=== PATIENT | male | born 1975 | race Caucasian/White ===

== ENCOUNTER 2016-04-06 23:05 | Emergency (ER) | payer SELFPAY ==
[~2016-04-06] VITALS: Ht 175.3 cm; Wt 86.4 kg
[~2016-04-06 23:05] MED LIST: ATARAX; CELEXA20 MG PO; COLACE 100100 MG/CAP PO; DESYREL 50MG50 MG PO; LISINOPRIL10 MG PO; NAPROSYN500 MG PO; NORCO 325 MG-51 TAB PO; PERCOCET 325 MG1 TA2 PO; PRINZIDE 12.5 M1 TA1 PO; SENOKOT S 50 MG1 TAB PO; TRAZADONE HYDR100 MG PO; XANAX 1MG1 MG PO; XANAX0.5 MG PO; ZOFRAN 4MG T4 MG/TAB PO; ZOLOFT 100MG100 MG PO
[2016-04-06 23:07] VITALS: TEMP 98.1
[2016-04-07] LABS: BASO # 0.1 (0.0-0.2); BASO % 0.7 % (0.0-2.0); EOS # 0.1 (0.0-0.7); EOS % 1.3 % (0-4.0); GRAN # 7.3 (1.4-6.5); GRAN % 66.7 % (42.2-75.2); HEMATOCRIT 42.5 % (42.0-52.0); HEMOGLOBIN 14.7 g/dl (13.5-18.0); LYMPH # 2.3 (1.2-3.4); MEAN CELL VOLUME 95 fl (80.0-100.0); MEAN CORPUSCULAR HEMOGLOBIN 33 pg (27.0-31.0); MEAN CORPUSCULAR HGB CONC 35 g/dl (33.0-37.0); MEAN PLATELET VOLUME 9.4 fl (7.4-10.4); MONO # 0.9 (0.1-0.6); MONO % 8.6 % (1.7-9.3); PLATELET COUNT 191 K/mm3 (130-400); RED BLOOD COUNT 4.48 M/mm3 (4.20-5.60); REDCELL DISTRIBUTION WIDTH-CV 13.1 % (11.5-14.5); WHITE BLOOD COUNT 10.9 K/mm3 (4.8-10.8)
[2016-04-07 00:10] LABS: PH 7 (5-8); URINE APPEARANCE Clear; URINE BILIRUBIN Negative (NEGATIVE); URINE BLOOD Negative (NEGATIVE); URINE COLOR Straw; URINE GLUCOSE Negative (NEGATIVE); URINE KETONE Negative (NEGATIVE); URINE UROBILINOGEN Negative (NEGATIVE)
[2016-04-07 00:13] LABS: ADJUSTED CALCIUM 8.9 mg/dL (8.4-10.2); ALANINE AMINOTRANSFERASE 64 U/L (21-72); ALBUMIN 3.9 gm/dL (3.5-5.0); ALKALINE PHOSPHATASE 77 U/L (50-136); ANION GAP 16 mmol/L (7-16); BILIRUBIN,TOTAL 0.8 mg/dL (0.0-1.0); BLOOD UREA NITROGEN 2 mg/dL (9-20); C-REACTIVE PROTEIN 1.2 mg/dL (0.0-0.9); CALCIUM 8.8 mg/dL (8.4-10.2); CARBON DIOXIDE 26 mmol/L (22-30); CHLORIDE 93 mmol/L (98-107); CREATININE, serum 0.63 mg/dL (0.66-1.25); GLUCOSE 106 mg/dL (74-106); POTASSIUM 3.3 mmol/L (3.4-5.0); SODIUM 135 mmol/L (137-145); TOTAL PROTEIN 7.5 gm/dL (6.4-8.2)
[2016-04-07 00:22] LABS: B-TYPE NATRIURETIC PEPTIDE 98 pg/mL (0-125); TROPONIN-I < 0.012 ng/mL (0.000-0.034)
[2016-04-07 00:25] LABS: ERYTHROCYTE SEDIMENTATION RATE 9 mm/hr (0-15)
[2016-04-07 00:50] VITALS: BP 96/68
[2016-04-07] MEDS ORDERED: ULTRAM 50MG TAB50 MG PO (00:54)
[2016-04-07 01:10] VITALS: PULSE 78
[2016-04-07 02:37] LABS: SQUAMOUS EPITHELIAL None Seen /hpf; URINE BACTERIA None Seen /hpf; URINE RBC None Seen /hpf; URINE WBC None Seen /hpf
== END 2016-04-07 01:12 | disposition home or self-care (01) ==
LOC: COL.ER 23:05
PROVIDERS: Emergency Medicine
DX: R60.0 Localized edema (principal); F10.120 Alcohol abuse with intoxication, uncomplicated; Y90.7 Blood alcohol level of 200-239 mg/100 ml; I10 Essential (primary) hypertension; F17.220 Nicotine dependence, chewing tobacco, uncomplicated
CPT/HCPCS: J1885

== ENCOUNTER 2017-06-08 18:24 | Emergency (ER) | payer SELFPAY ==
[~2017-06-08] VITALS: Ht 182.9 cm; Wt 90.9 kg
[~2017-06-08 18:24] MED LIST changes: +ULTRAM 50MG TAB50 MG PO
[2017-06-08 18:26] VITALS: BP 140/87; PULSE 108; TEMP 98.4
[2017-06-08 18:41] LABS: BASO # 0.1 (0.0-0.2); BASO % 0.5 % (0.0-2.0); EOS # 0.1 (0.0-0.7); EOS % 0.4 % (0-4.0); GRAN # 12.7 (1.4-6.5); GRAN % 79.8 % (42.2-75.2); HEMATOCRIT 43.6 % (42.0-52.0); HEMOGLOBIN 15.8 g/dl (13.5-18.0); LYMPH % 12.4 % (20.0-51.0); MEAN CELL VOLUME 93 fl (80.0-100.0); MEAN CORPUSCULAR HEMOGLOBIN 34 pg (27.0-31.0); MEAN CORPUSCULAR HGB CONC 36 g/dl (33.0-37.0); MEAN PLATELET VOLUME 9.3 fl (7.4-10.4); MONO # 0.8 (0.1-0.6); MONO % 5.3 % (1.7-9.3); PLATELET COUNT 164 K/mm3 (130-400)
[2017-06-08 18:43] LABS: COLLECTION METHOD CLEAN CATCH
[2017-06-08 18:49] LABS: PH 5 (5-8); SQUAMOUS EPITHELIAL None Seen /hpf; URINE APPEARANCE Clear; URINE BACTERIA None Seen /hpf; URINE BILIRUBIN Negative (NEGATIVE); URINE BLOOD Negative (NEGATIVE); URINE COLOR Straw; URINE GLUCOSE Negative (NEGATIVE); URINE KETONE Negative (NEGATIVE); URINE LEUKOCYTE ESTERASE Negative (NEGATIVE); URINE NITRATE Negative (NEGATIVE); URINE PROTEIN(semi-quant) Negative (NEGATIVE); URINE RBC None Seen /hpf; URINE UROBILINOGEN Negative (NEGATIVE)
[2017-06-08 18:58] LABS: TRICYCLIC ANTIDEPRESS URINE NEGATIVE
[2017-06-08 18:59] LABS: ACETAMINOPHEN < 10 ug/mL (10-30); ALANINE AMINOTRANSFERASE 97 U/L (21-72); ALBUMIN 4.1 gm/dL (3.5-5.0); ALCOHOL(ethanol),MEDICAL 261 mg/dL; ALKALINE PHOSPHATASE 61 U/L (50-136); ANION GAP 20 mmol/L (7-16); AST,SGOT 53 U/L (15-37); BILIRUBIN,TOTAL 0.5 mg/dL (0.0-1.0); BLOOD UREA NITROGEN 13 mg/dL (9-20); CALCIUM 8.2 mg/dL (8.4-10.2); CARBON DIOXIDE 20 mmol/L (22-30); CHLORIDE 95 mmol/L (98-107); CREATININE, serum 0.74 mg/dL (0.66-1.25); GLUCOSE 135 mg/dL (74-106); POTASSIUM 3.4 mmol/L (3.4-5.0); SALICYLATE < 1.0 mg/dL; SODIUM 135 mmol/L (137-145); TOTAL PROTEIN 7.3 gm/dL (6.4-8.2)
== END 2017-06-08 21:03 | disposition left against medical advice (07) ==
LOC: COL.ER 18:24
PROVIDERS: Family Medicine
DX: T42.4X2A Poisoning by benzodiazepines, intentional self-harm, initial encounter (principal); F41.9 Anxiety disorder, unspecified; I10 Essential (primary) hypertension; F32.9 Major depressive disorder, single episode, unspecified
CPT/HCPCS: J7030

== ENCOUNTER → 2017-08-02 | Outpatient (CLI) | payer OTHER | LOC: COL.RAD 13:22 | DX: S92.061S Displaced intraarticular fracture of right calcaneus, sequela (principal); M19.071 Primary osteoarthritis, right ankle and foot ==

== ENCOUNTER 2019-08-15 19:08 | Emergency (ER) | payer SELFPAY ==
[~2019-08-15] VITALS: Ht 175.3 cm; Wt 88.6 kg
[2019-08-15 19:09] VITALS: TEMP 98.3
[2019-08-15 19:48] LABS: HEMATOCRIT 43.3 % (42.0-52.0); MEAN CELL VOLUME 96 fl (80.0-100.0); MEAN CORPUSCULAR HEMOGLOBIN 33 pg (27.0-31.0); MEAN CORPUSCULAR HGB CONC 35 g/dl (33.0-37.0); MEAN PLATELET VOLUME 9.8 fl (7.4-10.4); PLATELET COUNT 185 K/mm3 (130-400); RED BLOOD COUNT 4.51 M/mm3 (4.20-5.60); REDCELL DISTRIBUTION WIDTH-CV 12.6 % (11.5-14.5)
[2019-08-15 20:04] LABS: ALBUMIN 4.7 gm/dL (3.5-5.0); BILIRUBIN,TOTAL 0.5 mg/dL (0.0-1.0); CALCIUM 9.5 mg/dL (8.4-10.2); CREATININE, serum 1.07 (0.66-1.25); TOTAL PROTEIN 7.8 gm/dL (6.4-8.2)
[2019-08-15 20:09] LABS: BAND 2 % (0-10); EOSINOPHIL 2 % (0-4); LYMPHOCYTE 26 % (20.0-51.0); METAMYELOCYTE 1 % (0-0); MYELOCYTE 1 % (0-0); NEUTROPHILS 64 % (42.0-75.2); PLATELET ESTIMATE NORMAL (NORMAL)
[2019-08-15 22:03] VITALS: BP 111/70; PULSE 86
== END 2019-08-15 22:20 | disposition short-term general hospital (02) ==
LOC: COL.ER 19:08
PROVIDERS: Family Medicine
DX: S32.021A Stable burst fracture of second lumbar vertebra, initial encounter for closed fracture (principal); M25.572 Pain in left ankle and joints of left foot; W11.XXXA Fall on and from ladder, initial encounter
CPT/HCPCS: J1170; J2270; J7030; J7040; Q9967

== ENCOUNTER 2022-05-19 14:17 | Emergency (ER) | payer OTHER ==
[~2022-05-19] VITALS: Ht 175.3 cm; Wt 90.9 kg
[2022-05-19 14:27] VITALS: TEMP 97.6
[2022-05-19 15:04] LABS: BASO # 0.1 K/mm3 (0.0-0.2); BASO % 0.7 % (0.0-2.0); EOS # 0.1 K/mm3 (0.0-0.7); EOS % 1.3 % (0.0-4.0); GRAN # 6.7 K/mm3 (1.4-6.5); GRAN % 71.1 % (42.2-75.2); HEMATOCRIT 43.7 % (42.0-52.0); HEMOGLOBIN 16.2 g/dl (13.5-18.0); LYMPH # 1.7 K/mm3 (1.2-3.4); LYMPH % 18.1 % (20.0-51.0); MEAN CELL VOLUME 89 fl (80.0-100.0); MEAN CORPUSCULAR HEMOGLOBIN 33 pg (27-31); MEAN CORPUSCULAR HGB CONC 37 g/dl (33.0-37.0); MONO # 0.8 K/mm3 (0.1-0.6); MONO % 8.5 % (1.7-9.3); PLATELET COUNT 227 K/mm3 (130-400); RED BLOOD COUNT 4.91 M/mm3 (4.20-5.60); REDCELL DISTRIBUTION WIDTH-CV 12.3 % (11.5-14.5)
[2022-05-19 15:30] LABS: BILIRUBIN,TOTAL 0.9 mg/dL (0.2-1.2); CALCIUM 9.2 mg/dL (8.4-10.2); CREATININE, serum 0.7 mg/dL (0.72-1.25); POTASSIUM 3.6 mmol/L (3.5-4.5); TOTAL PROTEIN 7.1 gm/dL (6.2-8.1)
[2022-05-19] MEDS ORDERED: ADDERALL20 MG PO (16:14)
[2022-05-19 17:35] VITALS: BP 166/84; PULSE 73
== END 2022-05-19 18:20 | disposition home or self-care (01) ==
LOC: COL.ER 14:17
PROVIDERS: Physician Assistant
DX: R22.1 Localized swelling, mass and lump, neck (principal); F17.210 Nicotine dependence, cigarettes, uncomplicated; Z28.310 Unvaccinated for COVID-19
CPT/HCPCS: J2543; J3370; J7030; J7050; Q9967

== ENCOUNTER 2022-05-28 06:03 | Day surgery (SDC) | payer OTHER ==
[2022-05-28] VITALS (8 sets, daily range): BP systolic 105–145; BP diastolic 57–89; PULSE 74–102; TEMP 97
[~2022-05-28] VITALS: Ht 175.3 cm; Wt 80.0 kg
[~2022-05-28 06:03] MED LIST changes: +ADDERALL20 MG PO
[2022-05-28 07:09] LABS: CALCIUM 9.7 mg/dL (8.4-10.2); CREATININE, serum 0.82 mg/dL (0.72-1.25); POTASSIUM 4.3 mmol/L (3.5-4.5)
[2022-05-28] MEDS ORDERED: PRIL40 PO (09:24)
[2022-05-28] MEDS ORDERED: NORCOELIX PO (09:24)
--- NOTE | 2022-05-28 12:44 | NUR ---
KATHY met with patient and patients significant other Casi at bedside post peg/port placement. KATHY educated about possible DME companies to obtain supplemental feeds through. Casi verbalizes agreement with [facility] and patient still drowsy from procedure. Together they live here in [place] and Casi verbalizes that she does not feel as if she needs additional home health support for teachings. Patients clinical information and order faxed to DME company.
--- NOTE | 2022-05-28 19:06 | NUR ---
[id number] PT TO [facility] [place] [facility] 7 FROM PACU S/P PEG AND PORTACATH PLACEMENT, EGD WITH BIOPSIES PLACED ON MONITOR, VSS ON RA RECEIVED REPORT AND ASSUMED CARE OF PT FROM JENNIFER LUJAN S/O AND CG AT BEDSIDE SWALLOW EVAL PASSED, PROVIDED FLUIDS - TOLERATING WELL/WITHOUT COMPLAINT. PEG AND PORTACATH DRSG CDI COORDINATED WITH DANCE ARTIST ON PT ED ON PEG TUBE, SAME IN WITH PT/CG TO ED AND PROVIDE JEVITY NUTRITION. ENFIT EDUCATION MATERIALS PROVIDED WITH DIET ORDERS. 1040 CASE MGMT AND MATERIALS MGMT CONTACTED TO MEET WITH PT AND ARRANGE DME, ENFIT SUPPLLIES, AND HOME HEALTH FOLLOWUP (REPORTEDLY PLANNED FOR TUE). 1050 AMBULATED TO BR AND BACK WITH STEADY INDEPENDENT GAIT, PLACE ON MONITOR. 1055 MERCHANDISE PRESENTATION MANAGER IN TO SEE PT/CG 1120 PT HAS REMAINED A&O, NAD, VSS ON RA, TOLERATING PO, IS WITHOUT SIGNIFICANT COMPLAINT, WITH STEADY GAIT THRU OUT [facility] [place] STAY. 1150 IV D/C'D. D/C INSTRUCTIONS, FOLLOW UP REVIEWED AND HANDED TO PT. ALL QUESTIONS AND CONCERNS ADDRESSED TO PT SATISFACTION. AWAITING ADDITIONAL PEG SUPPLIES. 1215 PT PROVIDED ADEQUATE SUPPLIES FOR ENFIT PEG AND TUBE FEEDINGS FROM SUPPLY 1235 TO EXIT VIA W/C WITH ALL BELONGINGS, SUPPLIES AND PAPERWORK IN HAND, ASSISTED INTO PASSENGER SEAT OF POV BY [facility] [place] STAFF. S/O,CG TO DRIVE HOME.
== END 2022-05-28 12:35 | disposition home or self-care (01) ==
LOC: SDCO 06:03
PROVIDERS: Surgery
DX: Z45.2 Encounter for adjustment and management of vascular access device (principal); Z43.1 Encounter for attention to gastrostomy; C09.9 Malignant neoplasm of tonsil, unspecified; C77.0 Secondary and unspecified malignant neoplasm of lymph nodes of head, face and neck; K29.80 Duodenitis without bleeding; K26.9 Duodenal ulcer, unspecified as acute or chronic, without hemorrhage or perforation; F17.210 Nicotine dependence, cigarettes, uncomplicated
CPT/HCPCS: C1788; J1644; J2250; J2704; J7120

== ENCOUNTER 2022-07-09 21:42 | Emergency (ER) | payer OTHER ==
[~2022-07-09] VITALS: Ht 175.3 cm; Wt 75.9 kg
[~2022-07-09 21:42] MED LIST changes: +ATROVENT INHALE14 GM IH; +CEFTIN500 MG PO; +NORCOELIX PO; +PRIL40 PO; +PROAIR HFA0.09 MG/AC IH
[2022-07-09 21:45] VITALS: BP 110/77; PULSE 127; TEMP 99.7
== END 2022-07-09 22:50 | disposition left against medical advice (07) ==
LOC: COL.ER 21:42
DX: R06.02 Shortness of breath (principal); R09.3 Abnormal sputum; R53.1 Weakness; R51.9 Headache, unspecified; M54.2 Cervicalgia; R68.84 Jaw pain; Z87.891 Personal history of nicotine dependence; Z28.310 Unvaccinated for COVID-19

== ENCOUNTER 2022-07-30 23:55 | Emergency (ER) | payer OTHER ==
[~2022-07-30] VITALS: Ht 175.3 cm; Wt 77.3 kg
[2022-07-31 00:22] LABS: HEMOGLOBIN 10.3 g/dl (13.5-18.0); MEAN CELL VOLUME 92 fl (80.0-100.0); MEAN CORPUSCULAR HEMOGLOBIN 31 pg (27-31); MEAN CORPUSCULAR HGB CONC 33 g/dl (33.0-37.0); MEAN PLATELET VOLUME 9.4 fl (7.4-10.4); PLATELET COUNT 311 K/mm3 (130-400); RED BLOOD COUNT 3.34 M/mm3 (4.20-5.60); REDCELL DISTRIBUTION WIDTH-CV 13.2 % (11.5-14.5)
[2022-07-31 00:30] LABS: INR 1.1 (0.8-3.0); PROTHROMBIN TIME 12.1 SECONDS (9.7-12.8)
[2022-07-31 00:33] LABS: PARTIAL THROMBOPLASTIN TIME 27.7 SECONDS (26.0-37.0)
[2022-07-31 00:37] LABS: HEMATOCRIT 30.8 % (42.0-52.0)
[2022-07-31 00:41] LABS: ALANINE AMINOTRANSFERASE 14 U/L (0-55); ALBUMIN 2.9 gm/dL (3.5-5.0); ALKALINE PHOSPHATASE 60 U/L (40-150); ANION GAP 13 mmol/L (7-16); AST,SGOT 15 U/L (5-34); BILIRUBIN,TOTAL 0.2 mg/dL (0.2-1.2); BLOOD UREA NITROGEN 11 mg/dL (9-21); C-REACTIVE PROTEIN 6.79 mg/dL (0.00-0.50); CALCIUM 9.1 mg/dL (8.4-10.2); CARBON DIOXIDE 27 mmol/L (22-29); CHLORIDE 93 mmol/L (98-107); GLUCOSE 125 mg/dL (70-99); POTASSIUM 4.2 mmol/L (3.5-4.5); SODIUM 133 mmol/L (136-145)
[2022-07-31 00:47] LABS: TROPONIN-I < 0.010 ng/mL (0.00-0.033)
[2022-07-31 01:08] LABS: BAND 2 % (0-10); EOSINOPHIL 2 % (0-4); LYMPHOCYTE 10 % (20.0-51.0); METAMYELOCYTE 2 % (0-0); MYELOCYTE 3 % (0-0); NEUTROPHILS 76 % (42.0-75.2); PLATELET ESTIMATE NORMAL (NORMAL)
[2022-07-31 02:46] VITALS: BP 122/91; PULSE 100; TEMP 98.4
== END 2022-07-31 02:46 | disposition home or self-care (01) ==
LOC: COL.ER 23:55
PROVIDERS: Emergency Medicine
DX: J98.11 Atelectasis (principal); R79.82 Elevated C-reactive protein (CRP); R79.1 Abnormal coagulation profile; C14.0 Malignant neoplasm of pharynx, unspecified; Z20.822 Contact with and (suspected) exposure to COVID-19; Z28.310 Unvaccinated for COVID-19
CPT/HCPCS: Q9967

== ENCOUNTER 2022-11-22 09:30 | Outpatient (RCR) | payer OTHER ==
[~2022-11-22 09:30] MED LIST changes: +TESSALON P100 MG/CAP PO
[2022-12-04] MEDS ORDERED: PERCOCET 325 MG1 TAB PO (04:44)
== END 2022-11-27 | disposition still patient (30) ==
LOC: MKS.ESL.PT
DX: C10.8 Malignant neoplasm of overlapping sites of oropharynx (principal); C77.0 Secondary and unspecified malignant neoplasm of lymph nodes of head, face and neck; F17.220 Nicotine dependence, chewing tobacco, uncomplicated

== ENCOUNTER → 2022-12-03 | Outpatient (CLI) | payer OTHER ==
[~2022-12-03] MED LIST changes: +PERCOCET 325 MG1 TAB PO
== END ==
LOC: COL.RAD 08:30
DX: C10.9 Malignant neoplasm of oropharynx, unspecified (principal)